=== PATIENT | male | born 1995 | race African-American/Black ===

== ENCOUNTER 2018-02-08 01:36 | Emergency (ER) | payer OTHER ==
[~2018-02-08] VITALS: Ht 172.7 cm; Wt 59.0 kg
[~2018-02-08 01:36] MED LIST: LANTUS100 UNIT/M SUBQ; MOBIC15 MG PO; NOVOLOG100 UNIT/1 SUBQ; ZOFRAN ODT4 MG PO
[2018-02-08 02:53] LABS: HEMATOCRIT 41.6 % (42.0-52.0); HEMOGLOBIN 13.7 gm/dL (14.0-18.0); MCH 28.1 pg (26.0-34.0); MCHC 32.8 g/dL (28.0-37.0); MCV 85.6 fL (80.0-100.0); RBC 4.86 mil/uL (4.50-6.00); RDW 13.2 % (10.5-14.5); WBC 6.9 thou/uL (4.0-11.0)
[2018-02-08 03:07] LABS: CALCIUM 10.2 mg/dL (8.5-10.1); CREATININE 0.6 mg/dL (0.7-1.3); POTASSIUM 3.6 mmol/L (3.5-5.1)
[2018-02-08 03:08] LABS: MAGNESIUM 1.8 mg/dL (1.8-2.4)
[2018-02-08] MEDS ORDERED: NEURONTIN 300300 M1 PO (03:31)
[2018-02-08 03:46] VITALS: BP 120/85
== END 2018-02-08 03:47 | disposition home or self-care (01) ==
LOC: ER 01:36
PROVIDERS: Emergency Medicine
DX: E10.40 Type 1 diabetes mellitus with diabetic neuropathy, unspecified (principal)

== ENCOUNTER 2018-08-18 22:28 | Emergency (ER) | payer BC ==
[~2018-08-18] VITALS: Ht 172.7 cm; Wt 54.4 kg
[~2018-08-18 22:28] MED LIST changes: +NEURONTIN 300300 M1 PO
[2018-08-18] MEDS ORDERED: NOVOLIN R100 UNIT/1 SUBQ (22:41)
[2018-08-18 23:59] LABS: URINE BILIRUBIN NEGATIVE (Negative); URINE BLOOD NEGATIVE (Negative); URINE CLARITY CLEAR; URINE COLOR YELLOW; URINE GLUCOSE-RANDOM* 3+ (Negative); URINE KETONES NEGATIVE (Negative); URINE LEUKOCYTES-REFLEX NEGATIVE (Negative); URINE NITRITE-REFLEX NEGATIVE (Negative); URINE PROTEIN (DIPSTICK) NEGATIVE (Negative); URINE SPECIFIC GRAVITY 1.015 (1.005-1.035); URINE UROBILINOGEN 0.2 E.U./dl (0.2-1.0)
[2018-08-19 00:10] LABS: ABSOLUTE NEUTROPHILS 3.9 thou/uL (1.4-8.2); BASOPHILS 0.6 % (0.0-2.0); EOSINOPHILS 3.4 % (0.0-3.0); HEMATOCRIT 39.3 % (42.0-52.0); HEMOGLOBIN 12.8 gm/dL (14.0-18.0); LYMPHOCYTES 25.7 % (24.0-44.0); MCH 28.2 pg (26.0-34.0); MCHC 32.7 g/dL (28.0-37.0); MCV 86.3 fL (80.0-100.0); MONOCYTES 11.2 % (1.0-8.0); PLATELET COUNT 212 thou/uL (150-400); POLYS 59.1 % (36.0-66.0); RBC 4.55 mil/uL (4.50-6.00); RDW 13.7 % (10.5-14.5); WBC 6.5 thou/uL (4.0-11.0)
[2018-08-19 00:15] LABS: CALCIUM 9.2 mg/dL (8.5-10.1); CREATININE 0.8 mg/dL (0.7-1.3); POTASSIUM 3.9 mmol/L (3.5-5.1)
[2018-08-19 01:07] VITALS: BP 132/76
[2018-08-19] MEDS ORDERED: NOVOLIN 70100 UNIT/1 SUBQ (09:17)
[2018-08-19] MEDS ORDERED: NOVOLIN N100 UNIT/1 SUBQ (09:18)
== END 2018-08-19 01:07 | disposition home or self-care (01) ==
LOC: ER 22:28
PROVIDERS: Emergency Medicine
DX: R19.7 Diarrhea, unspecified (principal); E10.65 Type 1 diabetes mellitus with hyperglycemia

== ENCOUNTER 2019-03-22 18:11 | Emergency (ER) | payer BC ==
[~2019-03-22] VITALS: Ht 172.7 cm; Wt 56.7 kg
[2019-03-22 18:11] VITALS: BP 104/74
[~2019-03-22 18:11] MED LIST changes: +NOVOLIN 70100 UNIT/1 SUBQ; +NOVOLIN N100 UNIT/1 SUBQ; +NOVOLIN R100 UNIT/1 SUBQ
[2019-03-22] MEDS ORDERED: ZOFRAN ODT4 MG PO (18:50)
[2019-03-22] MEDS ORDERED: PHENERGAN 25 MG25 M1 PO (18:50)
[2019-03-22] MEDS ORDERED: IBUPROFEN 600600 M1 PO (18:50)
== END 2019-03-22 19:01 | disposition home or self-care (01) ==
LOC: ER 18:11
DX: J11.1 Influenza due to unidentified influenza virus with other respiratory manifestations (principal); E10.9 Type 1 diabetes mellitus without complications; Z79.4 Long term (current) use of insulin

== ENCOUNTER 2019-10-30 10:06 | Emergency (ER) | payer BC, OTHER ==
[~2019-10-30] VITALS: Ht 172.7 cm; Wt 59.0 kg
[~2019-10-30 10:06] MED LIST changes: +IBUPROFEN 600600 M1 PO; +PHENERGAN 25 MG25 M1 PO
[2019-10-30] MEDS ORDERED: LANTUS SUBQ (10:24)
[2019-10-30] MEDS ORDERED: NAPROSYN500 MG PO (12:17)
[2019-10-30 12:36] VITALS: BP 101/68
== END 2019-10-30 12:37 | disposition home or self-care (01) ==
LOC: ER 10:06
DX: S20.212A Contusion of left front wall of thorax, initial encounter (principal); E10.9 Type 1 diabetes mellitus without complications; W18.30XA Fall on same level, unspecified, initial encounter; Y93.89 Activity, other specified; Y92.89 Other specified places as the place of occurrence of the external cause; Y99.9 Unspecified external cause status